=== PATIENT | female | born 1980 ===

== ENCOUNTER 2019-08-11 08:21 | Day surgery (SDC) | payer BC, OTHER ==
[~2019-08-11 08:21] MED LIST: Buffered Lidocaine 1% SYRIN* 1 ML/SYRINGE INTRADERM ONE; Famotidine IV* 10 MG/ML 2 ML (20 mg) IV ONE; Famotidine IV* 10 MG/ML 2 ML (20 mg) ONE; Lactated Ringers 1000 ML Bag* 1,000 ML IV SCH
[2019-08-11] MEDS ORDERED: ceFAZolin 2 GM in NS PREMIX(*) 0 GM/0 ML BAG IVPB ONE (08:29)
[2019-08-11] MEDS ORDERED: Clindamycin 900 MG/D5W BAG(*) 900 MG/50 ML BAG IVPB ONE (08:45)
[2019-08-11] MEDS ORDERED: Midazolam* 1 MG/ML 5 ML VIAL (5 MG) ONE (09:25)
[2019-08-11] MEDS ORDERED: Bupivacaine 0.25% SDV* 30 ML ONE (09:39)
[2019-08-11] MEDS ORDERED: fentaNYL* 50 MCG/ML 2 ML VIAL (100 MCG VIAL) ONE (10:06)
[2019-08-11] MEDS ORDERED: Dexamethasone IV* 4 MG/ML 1 ML (4 MG) ONE (10:13)
[2019-08-11] MEDS ORDERED: Ondansetron INJ* 2 MG/ML VIAL ONE (10:13)
[2019-08-11] MEDS ORDERED: Ketorolac INJ* 30 MG/ML 1 ML VIAL ONE (10:13)
[2019-08-11] MEDS ORDERED: Propofol* 10 MG/ML 20 ML BTL ONE (10:13)
[2019-08-11] MEDS ORDERED: DiMENhydriNATE IV* 50 MG/ML VIAL ONE (10:13)
[2019-08-11] MEDS ORDERED: HYDROcodone/ACETAMIN 5-325 MG* 1 TAB PO PRN (10:50)
[2019-08-11] MEDS ORDERED: Naloxone* 0.4 MG/ML 1 ML VIAL IV PRN (10:50)
[2019-08-11] MEDS ORDERED: DiMENhydriNATE IV* 50 MG/ML VIAL IV PUSH PRN (10:50)
[2019-08-11] MEDS ORDERED: Acetaminophen TAB* 325 MG ONE (11:55)
[2019-08-11 12:09] VITALS: BP 130/80
--- NOTE | 2019-08-12 01:58 | OP ---
DATE OF OPERATION: 08/11/19 - [facility] [place] DATE OF : 84 SURGEON: Jordan Santos MD. LAUNDRY CLERK: SHAUNA Cancino. An dental assistant medical assistant was needed for the procedure to aid in positioning of the arm and retraction. ANESTHESIOLOGIST: Dr. Blancas. ANESTHESIA: General. PRE-OP DIAGNOSES: 1. Right elbow chronic lateral epicondylitis. 2. Right carpal tunnel syndrome. POST-OP DIAGNOSES: 1. Right elbow chronic lateral epicondylitis. 2. Right carpal tunnel syndrome. OPERATIVE PROCEDURE: 1. Right elbow lateral epicondylitis debridement with tendon repair. 2. Right endoscopic carpal tunnel release. INDICATIONS: Ms. Velazco has the chronic lateral epicondylitis and some carpal tunnel symptoms. I have a little bit of concern for radial tunnel syndrome, but it is not so high that I thought we should do the release now. She understands if she continues to have symptoms of radial tunnel syndrome, we may have to come back and do a radial tunnel release in the future, but for now I think most of her symptoms will improve with a lateral epicondylitis debridement. She agrees and wishes to proceed. ESTIMATED BLOOD LOSS: 2 mL. COMPLICATIONS: None. FINDINGS: See above and below. DESCRIPTION OF PROCEDURE: Ms. Velazco was seen in the preoperative holding area. The correct site, side, and procedures were identified. We came back to the operating room. The arm was prepped and draped in the usual fashion and time-out was performed. The arm was exsanguinated with the Esmarch and the tourniquet was inflated. I first made a 1 cm transverse incision just ulnar to the palmaris longus tendon. Dissection was carried down. The distal antebrachial fascia was split transversely. A two-prong skin hook was placed. The carpal tunnel was dilated , opened and then the MicroAire endoscopic carpal tunnel system was introduced. When I had it in the appropriate location, I elevated the blade. The release was carried out from distal to proximal. Once I had completed the release distally and confirmed that, I released the distal antebrachial fascia proximally. At this point, everything was looking very nice. The wound was irrigated out. The skin was closed with 4-0 Prolene suture and a Steri-Strip. I then rotated the arm so that lateral epicondyle was facing me. I bumped at the elbow on a couple of towels. I made an oblique incision centered over the lateral epicondyle. Dissection was carried down and full-thickness flaps were raised off of the common extensor fascia. The interval between the ECRL and EDC was identified. I incised that interval, this took me down to the ECRB, which was a degenerative looking tendon. That was released right off of the lateral epicondyle and specimen was handed off. I did release some of the capsule to the elbow joint, exposing the radiocapitellar joint as well. Once I had completed the debridement of all the degenerative looking tissue, I curetted off the lateral epicondyle. I used the rongeur to nip off just the tip of the epicondyle. At this point, everything was looking very nice. I irrigated out the wound copiously. The tendon was repaired back together with 0 Vicryl suture. The skin was closed with 4-0 Prolene suture and Steri-Strips. 0.25% Marcaine was infiltrated all about both operative sites. Wounds were dressed with Xeroform, 4x4, sterile Webril, and then a long-arm splint with a lateral buttress was applied. She was taken to the recovery room in stable condition. [id number]/[facility] #: [id number] CARLO
== END 2019-08-11 12:25 | disposition home or self-care (01) ==
LOC: OREAST 08:21
PROVIDERS: ATTEND Orthopaedic Surgery Hand Surgery
DX: M77.11 Lateral epicondylitis, right elbow (principal); G56.31 Lesion of radial nerve, right upper limb; G56.01 Carpal tunnel syndrome, right upper limb; Z87.891 Personal history of nicotine dependence; Z88.0 Allergy status to penicillin; Z88.1 Allergy status to other antibiotic agents
CPT/HCPCS: 81025; 88305; A9270-GY; J0690; J1100; J1240; J1885; J2250; J2405; J2704; J3010; J3490